=== PATIENT | male | born 1975 | race African-American/Black ===

== ENCOUNTER 2018-07-17 01:31 | Emergency (ER) | payer SELFPAY ==
[~2018-07-17] VITALS: Ht 177.8 cm; Wt 99.8 kg
[2018-07-17] MEDS ORDERED: IBUPROFEN 600 MG TAB PO STA (01:46)
[2018-07-17] MEDS ORDERED: NAPROSYN500 MG PO (01:50)
[2018-07-17] MEDS ORDERED: TAMIFLU75 MG PO (01:50)
== END 2018-07-17 02:27 | disposition home or self-care (01) ==
LOC: FSED 01:31
DX: R50.9 Fever, unspecified (principal); R05 Cough; J11.1 Influenza due to unidentified influenza virus with other respiratory manifestations
CPT/HCPCS: 83518; 87400; 99283